=== PATIENT | male | born 1995 | race Caucasian/White ===

== ENCOUNTER 2019-11-25 17:22 | Emergency (ER) | payer SELFPAY ==
[~2019-11-25] VITALS: Ht 180.3 cm; Wt 78.4 kg
[2019-11-25 17:26] VITALS: BP 106/67
[2019-11-25] MEDS ORDERED: LIDOCAINE-MPF 1%, 5ML ONE (17:47)
[2019-11-25] MEDS ORDERED: LIDOCAINE 1%-EPI 1:100K, 20ML SQ ONE (18:00)
[2019-11-25] MEDS ORDERED: DIPH,PERTUSS(ACELL),TET VAC/PF 0.5 ML IM-VACC ONE ×2 (18:00→18:02)
[2019-11-25] MEDS ORDERED: LIDOCAINE 1%, 10ML INFIL ONE (18:00)
== END 2019-11-25 19:38 | disposition home or self-care (01) ==
LOC: ED 19:32
DX: S81.011A Laceration without foreign body, right knee, initial encounter (principal); S80.01XA Contusion of right knee, initial encounter; S80.211A Abrasion, right knee, initial encounter; V00.328A Other snow-ski accident, initial encounter; Y93.89 Activity, other specified; Y93.23 Activity, snow (alpine) (downhill) skiing, snowboarding, sledding, tobogganing and snow tubing; Y99.8 Other external cause status
CPT/HCPCS: 12034; 73560; 90471; 90715; 99284; J3490